=== PATIENT | male | born 1980 | race Caucasian/White ===

== ENCOUNTER 2019-03-31 22:31 | Inpatient (IN) ==
[2019-03-31 23:18] LABS: BASO# 0.03 X1000 (0.0-0.2); BASO% 0.4 % (0.0-0.8); EOS# 0.14 X1000 (0.0-0.7); HEMATOCRIT 42.3 % (42.0-52.0); HEMOGLOBIN 15.2 g/dL (14.0-18.0); LYMPH# 2.16 X1000 (1.2-3.4); LYMPH% 31.6 % (20.5-51.1); MCH 28.9 PG (27-31); MCHC 35.9 g/dL (33-37); MCV 80.4 FL (81-99); MONO% 7.3 % (1.7-9.3); NEUT% 58.7 % (42.2-75.2); PLT 192 X1000 (130-400); RBC 5.26 XMIL (4.7-6.1); RDW 12.6 % (11.5-14.5); WBC 6.83 X1000 (4.8-10.8)
[2019-03-31] MEDS ORDERED: NORCO-7.5 PO ONE (23:25)
--- NOTE | 2019-03-31 23:30 | PROVIDER DOCUMENTATION ---
HPI-Musculoskeletal Pain/Inj - GENERAL Chief Complaint: Return/Recheck Stated Complaint: LEFT FOOT PAIN Time Seen by Provider: 03/31/19 22:39 Source: patient - HX OF PRESENT ILLNESS-MUSKULOSKELTAL Nature of Presenting Problem: pt c/o worsening swelling erythema pain and warmth to left foot since onset of blister on plantar surface of foot 3 days ago, pt c/o worsening pain and swelling that has become more sever despite home clindamycin treatment. pt is T1DM Quality of Pain: reports: sharp, throbbing Severity in ED: moderate (moderate at worse, intermittant) Onset/Duration: 3 days ago Timing: still present, intermittent, getting worse Modifying Factors: improves with: movement (worse with movment and palpation), palpation Any recent injury?: No Similar Symptoms Previously?: Yes Recently seen or treated by another doctor?: Yes (seen here 3 days ago) - LOWER EXTREMITY PAIN/INJURY Lower Extremities Pain: foot: left (swelling with erythema extending to mid calf area), ankle: left Associated Symptoms: reports: denies symptoms Review of Systems - Adult - REVIEW OF SYSTEMS - ADULT Constitutional: reports: no symptoms reported Eyes: reports: no symptoms reported Ears, Nose, Mouth & Throat: reports: no symptoms reported Cardiovascular: reports: no symptoms reported Respiratory: reports: no symptoms reported Gastrointestinal: reports: no symptoms reported Genitourinary: reports: no symptoms reported Musculoskeletal: reports: see HPI Integumentary: reports: see HPI Neurological: reports: no symptoms reported Psychiatric: reports: no symptoms reported Endocrine: reports: no symptoms reported Hematologic/Lymphatic: reports: no symptoms reported Allergic/Immunologic: reports: no symptoms reported All Other Systems: Reviewed and Negative Past History - Adult - PAST MEDICAL HISTORY-ADULT Review of Records: reports: Old Records Reviewed, Nursing Assessment Review, Medications Reviewed Major Childhood Illnesses: reports: denies history Cardiovascular: reports: HTN, hyperlipidemia Respiratory: reports: denies history Gastrointestinal: reports: pancreatitis Obstetrical/Gynecological: reports: denies history Genitourinary: reports: denies history Musculoskeletal: reports: orthopedic injury Neurological: reports: denies history Endocrine/Immune: reports: Diabetes Other Conditions: reports: denies history - PRIOR SURGERIES/PROCEDURES Surgical/Procedure History: reports: hernia repair - PRIOR HOSPITALIZATIONS Prior Hospitalizations: reports: none - IMMUNIZATION STATUS Childhood Immunizations: See Nurse Assessment Flu Vaccine: See Nurse Assessment - FAMILY HISTORY Family History: reviewed, not pertinent - SOCIAL HISTORY Smoking: denies Substance Use: none/never Alcohol Use Frequency: never Physical Exam-Injury Related - Physical Exam-Injury Related Initial Vital Signs Reviewed: Yes General Appearance: appears well, alert, no apparent distress Eyes: PERRL/EOMI, pink conjunctivae. negative: photophobia, sclera injected, scleral icterus Head, Ears, Nose, Mouth & Throat: normocephalic/atraumatic, moist mucous membranes, normal ENT inspection Neck: non-tender, full range of motion, supple Respiratory: chest non-tender, lungs clear, normal breath sounds, no pleuratic chest pain, no respiratory distress, no accessory muscle use Cardiovascular: normal peripheral pulses, regular rate, rhythm, no edema, no gallop, no JVD, no murmur Abdominal Exam: normal bowel sounds, non tender, soft Female Genitalia/Pelvic Exam: deferred Male Genitalia: deferred Rectal Exam: deferred Hemoccult Exam: deferred Lymphatic: no adenopathy Back Exam: normal inspection Extremity: normal range of motion Integumentary: normal color, warm/dry, other (swelling, erythema and pain to lLE extending from toes to mid calf with several ulcerations to Lower leg and blister to plantar surface of foot) Neurologic: grossly normal, no motor/sensory deficits. negative: facial droop, focal weakness, motor weakness Psych/Mental Status: normal mood/affect, normal thought content, normal thought process, oriented x 3 - Glascow Coma Score Best Eye Response (Marga): (4) open spontaneously Best Verbal Response (Lowry): (5) oriented Best Motor Response (Marga): (6) obeys commands Progress - PLAN OF CARE/RESULTS Progress/Plan/Lab Results: 04/01/19 00:38 Blood Culture - Final Blood NO GROWTH AFTER 5 DAYS 04/01/19 00:38 Blood Culture - Final Blood NO GROWTH AFTER 5 DAYS Orders Category Date Time Status Admit - [facility] Routine AdmDCTranf 04/01/19 00:19 Active Activity - Up Ad Bren ORDERED Care 04/01/19 00:19 Active Neurological Check PRN Care 04/01/19 00:19 Completed Saline Loc DIRECTED Care 04/01/19 00:19 Completed Diabetic Diet Diet 04/01/19 00:21 Completed BLOOD CULTURE [BLDCUL] Stat Lab 04/01/19 00:38 Completed BMP [BASIC METABOLIC PANEL] [CHEM] Routine Lab 04/01/19 06:40 Completed BMP [BASIC METABOLIC PANEL] [CHEM] Stat Lab 03/31/19 23:03 Completed CBC WITH DIFF [HEME] Routine Lab 04/01/19 06:40 Completed CBC WITH ELECTRONIC DIFF [HEME] Stat Lab 03/31/19 23:03 Completed LACTATE, PLASMA [CHEM] Stat Lab 04/01/19 00:45 Completed 0.9% Sodium Chloride Inj [Ns] 1,000 ml Med 04/01/19 00:19 Discontinued IV 75 mls/hr 0.9% Sodium Chloride Inj [Ns] 1,000 ml Med 03/31/19 23:39 Discontinued IV 999 mls/hr Acetaminophen [Tylenol] Med 04/01/19 00:19 Discontinued 650 mg PO Q6H PRN PRN Diphenhydramine [Benadryl] Med 04/01/19 01:01 Discontinued 25 mg IV NOW ONE Hydrocodone/APAP 7.5 mg/325 mg [Waleska-7.5] Med 03/31/19 23:25 Discontinued 1 each PO NOW ONE Insulin Lispro (Webber) [Humalog (Webber)] Med 04/01/19 09:00 Discontinued 30 units SUBQ BID Insulin Lispro (Webber) [Humalog (Webber)] Med 04/01/19 07:00 Discontinued See Protocol SUBQ 0700,1100,1600,2100 Morphine Med 04/01/19 00:19 Discontinued 2 mg IV Q2H PRN PRN Ondansetron [Zofran] Med 04/01/19 00:19 Discontinued 4 mg IV Q4H PRN PRN Pharmacy Order [Vancomycin IV Per Pharmacy] Med 04/01/19 00:30 Discontinued 1 each MISC DIRECTED Piperacillin/Tazobactam [Zosyn] 3.375 gm Med 04/01/19 00:06 Discontinued 0.9% Sodium Chloride Inj [Ns] 50 ml IV NOW Piperacillin/Tazobactam [Zosyn] 3.375 gm Med 04/01/19 08:00 Discontinued 0.9% Sodium Chloride Inj [Ns] 50 ml IV Q6H Vancomycin 1 gm/Ns Med 03/31/19 23:39 Discontinued 1 gm in 250 ml IV NOW Oxygen Device Routine Oth 04/01/19 00:20 Completed Transfer/Admit Order [TRANSFER] Routine Transfer 04/01/19 00:22 Completed Result Diagrams: 04/02/19 06:15 04/02/19 06:15 - CONSULTS/PCP/HOSPITALIST Notification #1 *Consult/PCP/Hospitalist*: Dr Gregory Time Discussed: 00:09 (admit to [facility]) Consult Disposition: Admit Departure - Departure Date of Disposition Decision: 04/01/19 Time of Disposition Decision: 00:09 DIAGNOSIS: Cellulitis, Diabetes type I Disposition: ADMITTED INPATIENT 09 Certified Medical Emergency: Emergent Condition: Stable - Critical Care Note This patient required my direct & personal management of CC.: No Attestation - Physician/ VY Attestation Patient care was provided by Advanced Practice Provider:: Yes Advanced Practice Provider:: Jamilah Saldivar Advanced Practice Provider documentation review:: The Mid-level provider documentation, treatment plan and medical decision making was reviewed by the physician who agrees with all treatment and medical decision making by the MLP. The physician spent face to face time with patient:: No Advanced Practice Provider documentation review:: Supervising physician onsite and consulted in the evaluation and care of this patient. The physician did not have a face to face encounter with the patient.
[2019-03-31 23:36] LABS: AGAP 11; BUN 12 mg/dL (8-22); CHLORIDE 101 mmol/L (98-107); COSMO 287; CREATININE 0.6 mg/dL (0.7-1.2); ESTIMATED GFR > 60; GLUCOSE 332 mg/dL (70-104); POTASSIUM 4.2 mmol/L (3.5-5.1); SODIUM 137 mmol/L (136-145); TCO2 25 mmol/L (25-35)
[2019-03-31] MEDS ORDERED: NS 1,000 ML IV ONE (23:39)
[2019-03-31] MEDS ORDERED: VANCOMYCIN 1 GM/NS 1 GM/250 ML IVPB IV ONE (23:39)
[2019-04-01] MEDS ORDERED: ZOSYN 3.375 GM in NS 50 ML IV ONE (00:06)
[2019-04-01] MEDS ORDERED: ZOFRAN IV PRN (00:19)
[2019-04-01] MEDS ORDERED: NS 1,000 ML IV ONE (00:19)
[2019-04-01] MEDS ORDERED: TYLENOL PO PRN (00:19)
[2019-04-01] MEDS ORDERED: VANCOMYCIN IV PER PHARMACY MISC SCH (00:30)
[2019-04-01] MEDS ORDERED: BENADRYL IV ONE (01:01)
[2019-04-01] MEDS: MORPHINE IV PRN ×5 (01:11→22:59)
[2019-04-01] MEDS ORDERED: VANCOMYCIN 1 GM/NS 1 GM/250 ML IVPB IV ONE (04:00)
[2019-04-01] MEDS: HUMALOG (PARKWAY) SUBQ SCH ×6 (06:33→20:57)
[2019-04-01 06:49] LABS: BASO# 0.02 X1000 (0.0-0.2); BASO% 0.3 % (0.0-0.8); EOS% 1.4 % (0.0-10.0); HEMATOCRIT 41.6 % (42.0-52.0); HEMOGLOBIN 14.8 g/dL (14.0-18.0); IMM GRAN# 0.01 X1000 (0.0-0.04); IMM GRAN% 0.1 % (0.0-0.5); LYMPH# 1.53 X1000 (1.2-3.4); LYMPH% 21.5 % (20.5-51.1); MCHC 35.6 g/dL (33-37); MCV 81.6 FL (81-99); MONO# 0.61 X1000 (0.11-0.59); MONO% 8.6 % (1.7-9.3); MPV 9.8 FL (7.4-10.4); NEUT# 4.85 X1000 (1.4-6.5); NEUT% 68.1 % (42.2-75.2); PLT 184 X1000 (130-400); RDW 12.7 % (11.5-14.5); WBC 7.12 X1000 (4.8-10.8)
[2019-04-01 07:19] LABS: AGAP 8; BUN 11 mg/dL (8-22); CALCIUM 8.3 mg/dL (8.8-10.2); CHLORIDE 103 mmol/L (98-107); COSMO 284; CREATININE 0.6 mg/dL (0.7-1.2); ESTIMATED GFR > 60; GLUCOSE 286 mg/dL (70-104); POTASSIUM 4.2 mmol/L (3.5-5.1); SODIUM 137 mmol/L (136-145); TCO2 26 mmol/L (25-35)
[2019-04-01] MEDS: ZOSYN 3.375 GM in NS 50 ML IV SCH ×3 (08:58→20:53)
[2019-04-01 09:02] LABS: HEMOGLOBIN A1C 13.3 % (4.8-6.0)
--- NOTE | 2019-04-01 09:22 | HISTORY AND PHYSICAL ---
PRIMARY CARE PROVIDER: Used to be Dr. Smith. Then he changed it to Dr. Alyssa Valdivia who he saw last year but has since lost his insurance and does not have a primary care provider CHIEF COMPLAINT: Left foot pain. HISTORY OF PRESENT ILLNESS: Mr. Juan A Calderon is a 38-year-old, male with a medical history of diabetes mellitus type 1, history of acute pancreatitis, history of GERD, and is now here with left foot cellulitis. Apparently, Tuesday, he woke up with a small blister on the bottom of his foot just behind the 2nd and 3rd toes or between them. He thought it was something he had stepped on but it ended up being a really small blister when he touched it. By , he had gotten up to go to the bathroom around 2 a.m. and had severe pain in that area when he stepped foot on the floor. He got up, went to work, only lasted about 2 hours the pain was so severe. He took his shoe off. His foot was swollen. He went to [facility] who told him just to ice it up. Then, by night, it was so severe that he went to [facility] where he was prescribed antibiotics of clindamycin. He was also prescribed some Motrin. He was told that if it did not improve within 48 hours after antibiotic therapy to return to the emergency department. Within 48 hours, he had more redness throughout the ankle, all through the foot, and was much more swollen. The blister had increased in size to the size and length of a pinky finger. It is not open. He denies any fever or chills. No other complaints, just pain and swelling from that blister area. He was started on vancomycin and Zosyn in the ER, and admitted for left foot cellulitis. PAST MEDICAL HISTORY: 1. Recurrent acute pancreatitis. 2. Diabetes mellitus type 1, was diagnosed in his early 20s. 3. GERD. 4. Diabetic neuropathy in the bilateral feet. They tingle for him. SURGICAL HISTORY: 1. Left inguinal hernia repair x2. 2. Right inguinal hernia repair. SOCIAL HISTORY: Quit smoking in 2018. Prior to that, was a half pack per day smoker for 15 years. Used to use alcohol but states very rare now. Last time he had alcohol was on New Year's Nat. Denies any illicit drug use. Lives at home. He and his are . He has 3 kids. One of his older children was with him today, along with his grandparents. 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 He gets frequents sores on his shins due to tires that fall on him. FAMILY HISTORY: Mother had diabetes and a brain aneurysm, from a brain aneurysm at 39. Had an uncle who in his 40s from heart disease from a myocardial infarction. Mother also had blood clots. Father had congestive heart failure, at 39 from a myocardial infarction. Kidney disease, congestive heart failure, blood clots also on that side of the family. ALLERGIES: No known drug allergies. HOME MEDICATIONS: Novolin insulin 30 units subcutaneous twice a day. States his blood glucose level normally runs in the 400s, even at home. He checks it twice a day as well. REVIEW OF SYSTEMS: Fourteen point review of systems are complete and all are negative except for those mentioned above in the HPI. PHYSICAL EXAMINATION: VITAL SIGNS: Temperature 97.5 degrees, heart rate 75, respiratory rate 18, blood pressure 116/79, O2 saturation 97% on room air. GENERAL: Mr. Juan A Calderon is a 38-year-old, male. He is in no acute distress. He is able answer questions appropriately. HEENT: Atraumatic, normocephalic. Pupils equal, round, reactive to light. Extraocular movements intact. Mucous membranes are moist. NECK: Trachea midline. CARDIOVASCULAR: S1, S2. Regular rate and rhythm. No rubs, gallops, murmurs. No lower extremity edema except for the left foot area. There are +2 dorsalis and radial pulses. Negative JVD or carotid bruits. PULMONARY: Clear to auscultate bilateral breath sounds. No accessory muscle use or work of breathing noted. ABDOMEN: Soft, nontender, nondistended. Positive bowel sounds x4. EXTREMITIES: Moves all extremities equally with full range of motion. NEUROLOGIC: A and O x3. Follows commands. Sensory is intact except he has tingling in both feet that is chronic. SKIN: Warm, dry, intact except for the right gonsalves has multiple, multiple areas of skinned abrasions due to a tire that fell on it. The left gonsalves has some multiple areas that are in different healing stages. Between the 2nd and 3rd toes on the foot, the pad has probably about a half inch in width and about 2 inches in length, a blister that is extremely sensitive and painful for him. There is fluid in it but there are no open areas. The whole left foot it is red and has edema. It is not hot though. It is actually cool. LABORATORY DATA: White blood cells 7000, hemoglobin 14, hematocrit 41, platelet count 184,000. Sodium 137, potassium 4.2, BUN 11, creatinine 0.6, glucose 286, calcium 8.3, serum lactate 0.8. IMAGING: None. We will order an x-ray of that left foot. ASSESSMENT AND PLAN: 1. Left foot cellulitis. No obvious open wounds on the foot. Had been given 2 days of clindamycin which did not help. Now will be on vancomycin and actually got Zosyn on the medication regimen as well for now. Blood cultures have been ordered. They just have not resulted. 2. Diabetes mellitus type 1, uncontrolled likely. We will do a hemoglobin A1c. He states he takes his Novolin 30 units subcutaneous twice a day but his blood sugars still run in the 400s at home. Is unable to follow up with the primary as he states he has no insurance, in order to manage his diabetes well. He will be on a diabetic diet and sliding scale insulin. Pattern blood glucoses. He will continue on his insulin 30 twice a day. He is on the low dose regimen. We will have to monitor and make sure he does not need to be increased on the sliding scale insulin. 3. History of gastroesophageal reflux disease but he does not take anything at home for it. 4. History of recurrent acute pancreatitis. No issues recently. No complaints of abdominal pain at this time. 5. Deep venous thrombosis prophylaxis. Lovenox. Dictated by MARYELLEN Davis for Jd Gregory MD cc: MARYELLEN Davis MD
[2019-04-01] MEDS: NORCO-7.5 PO PRN ×3 (12:22→20:57)
--- NOTE | 2019-04-01 12:59 | Diag Imaging Result Doc PS360 ---
EXAM: FOOT COMPLETE LEFT - 04/01/2019 HISTORY: left foot infection b/t 2nd 3rd toe TECHNIQUE: Left foot three views COMPARISON: None. FINDINGS: There is some overlap of the proximal phalanges of the second through fifth toes on the oblique view which mildly limits detail. There is no fracture or dislocation identified. There are no erosive or destructive changes identified. There is no opaque foreign body identified. IMPRESSION: No visible acute bony abnormality. Please note that early osteomyelitis can be radiographically occult. Electronically signed by Curt Islas 04/01/2019 12:56 PM
[2019-04-01] MEDS: VANCOMYCIN 1,750 MG in NS 250 ML IV SCH (15:47)
[2019-04-01] MEDS ORDERED: VANCOMYCIN 1,750 MG in NS 250 ML IV SCH (16:00)
--- NOTE | 2019-04-01 16:14 | HISTORY AND PHYSICAL ---
The patient presented with a several-day history of pain and swelling in his foot. He had been seen as an outpatient. In the ER was started on clindamycin, did not improve. He had persistent pain and swelling in his left leg. He was admitted for treatment. He came in. No white count. Sugars are not well controlled but that is not unusual for him. He was empirically placed on vancomycin and Zosyn and I would continue that for the time being. Unlikely that we will get culture results. He does have kind of a pyramidal 2-3 cm lesion between his 2nd and 3rd toe. No open lesions. Very tender to palpation. We will get wound consult, continue treatment, and follow clinically. Hopefully, he can go home soon, unless something changes drastically. This is a [id number] encounter note with MARYELLEN Davis. cc: Jd Gregory MD
[2019-04-02] MEDS: ZOSYN 3.375 GM in NS 50 ML IV SCH ×4 (02:11→21:08)
[2019-04-02] MEDS: MORPHINE IV PRN ×4 (02:11→21:09)
[2019-04-02] MEDS: VANCOMYCIN 1,750 MG in NS 250 ML IV SCH (02:59)
[2019-04-02] MEDS: HUMALOG (PARKWAY) SUBQ SCH ×4 (06:22→23:03)
[2019-04-02] MEDS: NORCO-7.5 PO PRN ×4 (06:22→23:20)
[2019-04-02 06:55] LABS: BASO# 0.01 X1000 (0.0-0.2); BASO% 0.2 % (0.0-0.8); EOS% 1.9 % (0.0-10.0); HEMATOCRIT 39.5 % (42.0-52.0); HEMOGLOBIN 13.9 g/dL (14.0-18.0); LYMPH# 1.04 X1000 (1.2-3.4); LYMPH% 19.6 % (20.5-51.1); MCHC 35.2 g/dL (33-37); MCV 82.3 FL (81-99); MONO% 7.5 % (1.7-9.3); MPV 10.1 FL (7.4-10.4); NEUT# 3.75 X1000 (1.4-6.5); NEUT% 70.8 % (42.2-75.2); PLT 195 X1000 (130-400); RDW 12.5 % (11.5-14.5)
[2019-04-02 07:21] LABS: AGAP 9; ALBUMIN 3.2 g/dL (3.5-5.0); ALKALINE PHOSPHATASE 101 U/L (32-122); BUN 13 mg/dL (8-22); CALCIUM 8.2 mg/dL (8.8-10.2); CHLORIDE 105 mmol/L (98-107); COSMO 295; CREATININE 0.7 mg/dL (0.7-1.2); ESTIMATED GFR > 60; GLUCOSE 336 mg/dL (70-104); GOT 12 U/L (10-34); GPT 10 U/L (10-44); MAGNESIUM 1.7 mg/dL (1.5-2.7); POTASSIUM 4.6 mmol/L (3.5-5.1); SODIUM 141 mmol/L (136-145); TCO2 27 mmol/L (25-35); TOTAL PROTEIN 5.1 g/dL (6.3-8.3)
[2019-04-02] MEDS ORDERED: NOVOLOG MIX 70/30 (PARKWAY) SUBQ SCH ×2 (08:00→17:00)
[2019-04-02] MEDS: LOVENOX SUBQ SCH (08:11)
--- NOTE | 2019-04-02 16:25 | Diag Imaging Result Doc PS360 ---
CT EXT LOWER LEFT W/CON - 04/02/2019 INDICATION: ? abcess/osteomyelitis TECHNIQUE: CT of the left lower leg and foot with intravenous contrast COMPARISON: X-rays from 04/01/2019 FINDINGS: There is diffuse pedal edema about the left ankle. No drainable fluid collection. No soft tissue gas. The major arteries and veins are all normal. Bones are intact and normally mineralized. No bony erosions. The joints are clear. IMPRESSION: Subcutaneous edema about the left ankle. No focal or drainable fluid collections. No bony abnormalities. This exam was performed using automated exposure control, adjustment of mA or kV according to patient size, and/or use of iterative reconstruction technique Electronically signed by Maverick Mora 04/02/2019 4:22 PM
[2019-04-02] MEDS: VANCOMYCIN 1,900 MG in NS 500 ML IV SCH (17:23)
[2019-04-03] MEDS: ZOSYN 3.375 GM in NS 50 ML IV SCH ×4 (02:09→20:03)
[2019-04-03] MEDS: MORPHINE IV PRN (02:12)
[2019-04-03] MEDS: VANCOMYCIN 1,900 MG in NS 500 ML IV SCH ×2 (03:04→16:54)
--- NOTE | 2019-04-03 05:14 | PROGRESS NOTE ---
DATE: 04/02/2019 SUBJECTIVE: Patient notes that his leg has less swelling, less edema and less pain. He does not that his blood sugars have been elevated at home. He has not been able to get to his primary care or [facility]ker due to lack of insurance. He takes his insulin when he can afford it. OBJECTIVE: Vital Signs: Temperature 97.8, pulse 76, respiratory 10, and BP 110/64. General: Patient is awake and alert. He is in no distress. HEENT: Normocephalic. Neck: Supple. Cardiovascular: Regular rate. Chest: Clear. Abdomen: Soft. Extremities: Moves all extremities. Skin: He has erythema from his midcalf down to his foot and slightly warm. Edema appears to be improved. ASSESSMENT: 1. Left foot and left calf cellulitis. Currently, he is on vancomycin and Zosyn. 2. Type 1 diabetes, poor control with an A1c of 13.3. We will restart his NovoLog 70/30. PLAN: We will continue patient in the hospital. Continue to control his blood sugars. Continue antibiotics. Further orders as needed. cc: Tylor Smith MD
[2019-04-03] MEDS: HUMALOG (PARKWAY) SUBQ SCH ×4 (06:31→23:11)
[2019-04-03] MEDS: NORCO-7.5 PO PRN ×3 (07:54→20:03)
[2019-04-03] MEDS: NOVOLOG MIX 70/30 (PARKWAY) SUBQ SCH ×2 (07:54→16:53)
[2019-04-03] MEDS: LOVENOX SUBQ SCH ×2 (07:54→08:06)
--- NOTE | 2019-04-03 14:58 | VASCULAR LAB ---
PROCEDURE NAME: Arterial Bilateral Legs - 04/01/2019 REQUESTING PHYSICIAN: Dr. Gregory. CRIB ATTENDANT: Geller. INDICATION: Cellulitis of left leg and sores of both legs. FINDINGS: Segmental pressures are as follows: Right brachial 108 and left 108, right proximal thigh 121 and left 121, right distal thigh 123 and left 127, right popliteal 115 and left 115, right posterior tibial 108 and left 113, right dorsalis pedis 121 and left 112, right great toe 86 and left 73, right JEANNA 1.12 and left 1.05, right TBI 0.80 and left 0.72. Waveforms: Waveforms appear to be intact and pulsatile to the level of the toes bilaterally. INTERPRETATION: Likely some mild distal peripheral small vessel disease but there is perfusion noted to both feet. cc: MD Jd Lopez MD
--- NOTE | 2019-04-04 00:18 | PROGRESS NOTE ---
DATE: 04/03/2019 SUBJECTIVE: Patient notes the swelling, redness, and pain in his left lower extremity appears to be improving. Denies any fevers or chills. Denies cough, congestion currently. PHYSICAL EXAMINATION: Vital Signs: Reviewed. He is afebrile. Pulse 86, respiratory rate 20, temperature 97.8 degrees, BP 138/82. General: Patient is very pleasant, he is in no distress. HEENT: Normocephalic. Neck: Supple. Cardiovascular: Regular rate. No murmurs. Chest: Clear, nonlabored. Abdomen: Soft, nondistended. Extremities: Moves all extremities. ASSESSMENT: 1. Cellulitis, left lower extremity. 2. Type 1 diabetes. His C-peptide is 1 despite the fact his blood sugars are elevated. 3. Chronic reflux. PLAN: We will continue vancomycin and Zosyn. We will increase his 70/30 to 32 units twice daily and will follow. Hopefully, home over the next 1 or 2 days. cc: Tylor Smith MD
[2019-04-04] MEDS: ZOSYN 3.375 GM in NS 50 ML IV SCH ×4 (01:50→20:36)
[2019-04-04] MEDS: NORCO-7.5 PO PRN (02:25)
[2019-04-04] MEDS: VANCOMYCIN 1,900 MG in NS 500 ML IV SCH (03:30)
[2019-04-04] MEDS: HUMALOG (PARKWAY) SUBQ SCH ×4 (06:17→20:41)
[2019-04-04] MEDS: NOVOLOG MIX 70/30 (PARKWAY) SUBQ SCH ×2 (08:11→17:09)
[2019-04-04] MEDS: DOXYCYCLINE PO SCH ×2 (08:12→20:36)
[2019-04-04] MEDS: LOVENOX SUBQ SCH (08:12)
[2019-04-04] MEDS: MORPHINE IV PRN ×3 (08:18→20:49)
[2019-04-04] MEDS: ZOFRAN IV PRN (10:16)
[2019-04-05] MEDS: ZOSYN 3.375 GM in NS 50 ML IV SCH ×2 (01:15→04:22)
--- NOTE | 2019-04-05 03:57 | PROGRESS NOTE ---
DATE: 04/04/2019 SUBJECTIVE: The patient notes overall he is feeling better. His muscle ache in his left calf has improved. Denies any fevers, chills. States the warmness in his calf has improved. OBJECTIVE: Vital Signs: Reviewed. Temperature 97.9, respirations 10, BP 114/82. General: Patient is in no current respiratory distress. HEENT: Normocephalic. Neck: Supple. Cardiovascular: Regular rate. No murmurs. Chest: Clear and nonlabored. Extremities: Moves all extremities. Skin: Has less erythema over his left lower extremity. Still has a blackened area underneath the 3rd digit. Does have hair on his feet as well as calf. ASSESSMENT: 1. Cellulitis. 2. Diabetes with poor home control. Better control here after increasing his 70/30 slightly. 3. Diabetes type 1. 4. Others. PLAN: We will continue patient in the hospital. We will stop vancomycin, switch to doxycycline. Continue Zosyn, and will follow. cc: Tylor Smith MD
[2019-04-05] MEDS: HUMALOG (PARKWAY) SUBQ SCH ×4 (06:32→20:51)
[2019-04-05] MEDS: NOVOLOG MIX 70/30 (PARKWAY) SUBQ SCH ×2 (09:56→17:08)
[2019-04-05] MEDS: LOVENOX SUBQ SCH (09:57)
[2019-04-05] MEDS: DOXYCYCLINE PO SCH ×2 (11:23→20:51)
--- NOTE | 2019-04-05 20:15 | PROGRESS NOTE ---
DATE: 04/05/2019 SUBJECTIVE: Patient notes that overall he is feeling much better. His pain in his left lower extremity is improved. Still has some swelling in his ankle, but this also is improving. Denies any current fevers or chills. PHYSICAL EXAMINATION: Vital Signs: Temp 98, pulse 87, respiratory 20, BP 127/80. General: Patient is awake, alert. He is in no distress. HEENT: Normocephalic. Neck: Supple. Cardiovascular: Regular rate. No murmurs. Chest: Clear. Abdomen: Soft. Extremities: Moves all extremities. Neurologic: No focal changes. Skin: Warm and dry, no rash. In the left ankle we still have erythema to the left ankle, but this also has improved since admission. ASSESSMENT: 1. Cellulitis. 2. Diabetes, with poor home control. Type 1 diabetes. 3. Reflux. 4. Diabetic neuropathy. PLAN: We will continue patient in the hospital, increase his 70/30 to 34. His blood sugars are elevated this evening, so we will actually increase to 35 units twice daily. His A1c was 13.3. We will continue to follow. We will change him to p.o. Omnicef. If he continues to improve, he will be discharged home tomorrow. cc: Tylor Smith MD
[2019-04-06 05:27] VITALS: BP 151/86
[2019-04-06] MEDS: ZOFRAN IV PRN (06:11)
[2019-04-06] MEDS: HUMALOG (PARKWAY) SUBQ SCH (06:12)
[2019-04-06] MEDS ORDERED: NOVOLOG MIX 70/30 (PARKWAY) SUBQ SCH (08:00)
[2019-04-06] MEDS: DOXYCYCLINE PO SCH (09:14)
[2019-04-06] MEDS: LOVENOX SUBQ SCH (10:24)
--- NOTE | 2019-04-07 14:49 | DISCHARGE SUMMARY ---
ADMISSION DATE: 04/01/2019 DISCHARGE DATE: 04/06/2019 DIAGNOSES: 1. Cellulitis, resolved. 2. Diabetes mellitus with poor home control type 1. 3. Gastroesophageal reflux disease. 4. Peripheral neuropathy. DIAGNOSTICS: 1. 04/01/2019 bilateral arterial Doppler revealed it is likely some mild distal peripheral small- vessel disease, but there is perfusion noted to both feet. 2. Foot x-ray left revealed no visible acute bony abnormality. 3. Lower extremity CT of the left leg and foot subcutaneous edema about the left ankle. No focal or drainable fluid collections. No bony abnormalities. MICROBIOLOGY: Blood cultures x2 revealed no growth after 48 hours. HOSPITAL COURSE: Mr. Calderon presented to the emergency room complaining of left foot pain. He was found to have cellulitis for which he was initially treated with vancomycin, Zosyn. Blood cultures returned with no growth x2 sets. This cellulitis has improved and he will be discharged home on doxycycline. Novolin 70/30, was increased to 35 units b.i.d. and blood sugars have been in the 170s to 200s. We did discuss that he could buy rely on insulin along with meter strips and supplies he needed [id number] without his insurance. We did look up the prices which he stated were affordable. He was strongly urged to buy supplies needed and take medicines as directed. He remained afebrile and thankfully he is ready for discharge. DISCHARGE VITAL SIGNS: Blood pressure is 151/80 with a heart rate of 82, respirations 16, temperature is 98 degrees with room air saturations 97-99%. DISCHARGE PHYSICAL EXAMINATION: Cardiovascular: Regular rate and rhythm. S1, S2 appreciated. Extremities: Calves are nontender bilateral with peripheral pulses palpable x4 extremities. Pulmonary: Breath sounds are clear. No increased work of breathing noted. Chest: Rises and falls symmetric with respiration. Gastrointestinal: Abdomen is soft, nontender, nondistended with bowel sounds in all 4 quadrants. Neurologic: He is alert and oriented x3. Left foot: He does have some swelling in his ankle this is greatly improved. He has erythema to his left ankle, although this is greatly improved. DISCHARGE MEDICATIONS: 1. Doxycycline 100 mg p.o. b.i.d. x7 days. 2. Novolin 70/30 35 units subcutaneous b.i.d. FOLLOW-UP: The patient states he is going to call Dr. Alyssa Valdivia as she has been his primary care provider in the past. He is going to see if she will take him back on as a patient. If not, he has been given the numbers to the providers accepting new patients as well as the number to the [facility]. He has been instructed to call Tuesday to attempt to get an appointment. He needs to be seen in the next 1 to 2 weeks. He was instructed if he was not able to find a provider within the next two weeks he needs to return to the emergency room for follow-up. He was instructed to return to the ER for temperature greater than 101, any syncope, dizziness, chest pain, palpitations, shortness of breath, cough, fever, chills, any night sweats, any nausea, vomiting, diarrhea, constipation, black or bloody vomitus or stools, hematuria, dysuria, frequency, urgency, recurring swelling to his left leg, left foot, any drainage, any discoloration, a foul odor any pain or change in sensation or for any questions or concerns that he may have. He is being discharged home in stable condition with family members. TIME SPENT: This is a greater than 30 minute discharge. Dictated by MARYELLEN Guy for Tylor Smith MD cc: MARYELLEN Guy MD [facility]
--- NOTE | 2019-04-07 15:46 | DISCHARGE SUMMARY ---
ADMISSION DATE: 04/01/2019 DISCHARGE DATE: 04/06/2019 DISCHARGE DIAGNOSES: 1. Cellulitis left lower extremity. 2. Swelling ankle left lower extremity. 3. Type 1 diabetes. 4. Chronic reflux. 5. Diabetic neuropathy in bilateral feet. 6. Medical noncompliance due to lack of insurance. CONSULTATIONS: None. PROCEDURES: None. BRIEF HOSPITAL COURSE: The patient is a 38-year-old male who has not had a primary care provider in some time as he lost his insurance approximately a year ago. He was admitted to the hospital secondary to markedly elevated blood sugars. His A1c was actually 13.3. He was also noted to have increased erythema, was placed on his home 70/30. We did discuss with patient that [facility] has nonprescription insulin that is much less expensive. Thankfully regardless he continues to improve from a respiratory and infection standpoint. The patient continued to improve. His blood sugars remained elevated, so we continued to increase his 70/30. On discharge, he was on 35 units twice daily. His blood sugars were markedly improved in the mid to upper 150s. DISPOSITION: Patient will be discharged home. He will continue steroids. We will continue to follow. TIME SPENT: Greater than 30 minutes was spent in total care. Continue doxycycline for the next 5 days at home. cc: Tylor Smith MD
== END 2019-04-06 13:41 | disposition home or self-care (01) | DRG 603 ==
LOC: P.ED 22:31 → SUATTDRO 04-01 01:50 → P.MEDSURG 04-01 01:50
PROVIDERS: ATTEND Family Medicine
CPT/HCPCS: 73630; 73701; 80048; 80053; 80202; 82948; 83036; 83605; 83735; 84681; 85025; 87040; 93923; 94761; 96365; 96367; 96375; 99285; A9270; J1200; J1650; J1815; J2270; J2405; J2543; J3370; J7030; J7040; J7050; Q9967; XXXXX